=== PATIENT | male | born 1945 | race Caucasian/White ===

== ENCOUNTER → 2019-05-15 10:30 | Outpatient (CLI) | payer MEDICARE, BC | END | disposition home or self-care (01) | LOC: D.HCCECHO 10:30 | PROVIDERS: ATTEND Internal Medicine Cardiovascular Disease | DX: I20.9 Angina pectoris, unspecified (principal) ==

== ENCOUNTER 2019-05-24 06:26 | Outpatient (CLI) | payer MEDICARE, BC ==
[~2019-05-24] VITALS: Ht 200.7 cm; Wt 105.5 kg
--- NOTE | ~2019-05-24 | HEMODYNAMI ---
PATIENT:MAYRA DOMINGUEZ MEDICAL RECORD: [id number] : 45 LOCATION:[facility] ADMISSION DATE: 05/24/19 Generatedon:05/24/20199:20 Patient name: MAYRA DOMINGUEZ Patient #: [id number] SSN: [id number] : 1945 Date of study: 05/24/2019 Page: Of Hemodynamic Procedure Report Patient Data Patient Demographics Procedure consent was obtained First Name: MAYRA Gender: Male Last Name: ALBERTO : 1945 Patient #: [id number] Age: 74 year(s) Race: Unknown SSN: [id number] Additional ID: [id number] Contact details [address]: [address] [place] [address] DRIVE State: [place] City: [place] Zip code: [address] Admission Admission Data Admission Date: 05/24/2019 Admission Time: 6:26 Arrival Date: 05/24/2019 Arrival Time: 8:30 Admit Source: Other Insurance Payor: Medicare [facility] #: [id number] Height (in.): 31.1 BSA: 1.25 (m2) Height (cm.): 79 BMI: 174.43 (kg/m2) Weight (lbs.): 240 Weight (kg.): 108.86 Procedure Procedure Types Cath Procedure Diagnostic Procedure LHC LH w/Coronaries Sedation Charges Moderate Sedation up to 30 minutes PCI Procedure Coronary Stent Coronary Stent Initial Hemochron ACT Test Procedure Description Procedure Date Procedure Date: 05/24/2019 Procedure Start Time: 8:50 Procedure End Time: 9:16 Procedure Staff Name Function Andry Ruelas MD Performing Physician Kelsi Herbert RT Monitor Kat Chan RT Scrub Angi Francis RN Nurse Procedure Data Cath Procedure Fluoroscopy Diagnostic fluoroscopy Total fluoroscopy Time: 6.6 time: 6.6 min min Diagnostic fluoroscopy Total fluoroscopy dose: dose: 1238 mGy 1238 mGy Contrast Material Contrast Material Type Amount (ml) Isovue 300 134 Entry Location Entry Primary Successful Side Size Upsize Upsize Entry Closure Succes sful Closure Location (Fr) 1 (Fr) 2 (Fr) Remarks Device Remarks Femoral Right 5 Fr 6 Fr Exoseal artery Short Estimated blood loss: 5 ml Diagnostic catheters Device Type Used For End Catheter Placement MULTIPACK JL 4.0 5Fr Left Coronary catheter Angiography MULTIPACK 3DRC 5Fr Right Coronary catheter Angiography MULTIPACK Pigtail 5 Fr LV Angiography catheter Procedure Complications No complications Procedure Medications Medication Administration Route Dosage Oxygen etCO2 Nasal cannula 2 l/min Lidocaine 2% added to field 20 Heparin Flush Bag added to field 2 bags (1000units/500ml NS) 0.9% NaCl I.V. 100 ml/hr Versed I.V. 1 mg Fentanyl I.V. 50 mcg Versed I.V. 1 mg Fentanyl I.V. 50 mcg Heparin Bolus I.V. 70879 units Nitroglycerin IC/IA I.C. 100 mcg Versed I.V. 0.5 mg Fentanyl I.V. 25 mcg Plavix P.O. 600 mg Hemodynamics Rest BSA: 1.25 (m2) O2 Consumption: Estimated: 141.66 (ml/min) O2 Consumption indexed : Estimated:113.33 (ml/min/m) Heart Rate: 65 (bpm) Pressure Samples Time Site Value (mmHg) Purpose Heart Use Rate(bpm) 8:58 LV 133/1,11 Snapshot 80 Gradients Valve Time Site Site Mean SEP/DFP Peak To Heart Use 1 2 (mmHg) (sec/min) Peak Rate (mmHg) (bpm) Aortic 9:00 LV AO 80 Snapshots Pre Cath Intra NCS Post Cath Vital Signs Time Heart Resp SPO2 etCO2 NIBP (mmHg) Rhythm Pain Sedation Rate (ipm) (%) (mmHg) Status Level (bpm) 8:43:49 74 13 98 33.1 147/84(110) NSR 0 (11) 10(A) , No pain 8:48:17 57 15 97 27.1 117/50(81) NSR 0 (11) 10(A) , No pain 8:52:23 54 14 99 13.5 131/69(109) NSR 0 (11) 9(A) , No pain 8:56:31 74 17 95 24.8 132/78(112) NSR 0 (11) 9(A) , No pain 9:00:38 84 18 98 0 129/79(110) NSR 0 (11) 9(A) , No pain 9:04:51 78 15 99 27.9 135/68(101) NSR 0 (11) 9(A) , No pain 9:09:04 81 14 99 0 116/69(92) NSR 0 (11) 9(A) , No pain 9:13:08 78 12 99 9.8 131/73(93) NSR 0 (11) 10(A) , No pain Medications Time Medication Route Dose Verified Delivered Reason Notes Effectiveness by by 8:44:42 Oxygen etCO2 2 Andry Andry used for Nasal l/min Boni Ruelas MD procedure cannula 8:44:51 Lidocaine 2% added 20ml Andry Andry for local to vial Boni Ruelas MD anesthetic field 8:44:56 Heparin Flush added 2 bags Andry Andry used for Bag to Boni Ruelas MD procedure (1000units/500ml field NS) 8:45:04 0.9% NaCl I.V. 100 Andry Buffie Per physician ml/hr Boni Francis RN 8:46:08 Versed I.V. 1 mg Andry Buffie for sedation Boni Francis RN 8:46:13 Fentanyl I.V. 50 mcg Andry Buffie for sedation Boni Francis RN 8:51:33 Versed I.V. 1 mg Andry Buffie for sedation Boni Francis RN 8:51:36 Fentanyl I.V. 50 mcg Andry Buffie for sedation Boni Francis RN 9:00:26 Versed I.V. 0.5 mg Andry Andry for sedation Boni Ruelas MD 9:00:30 Fentanyl I.V. 25 mcg Andry Andry for sedation Boni Ruelas MD 9:06:18 Heparin Bolus I.V. 10,000 Andry Buffie for verif ied units Boni Francis RN anticoagulation with dr ruelas 9:06:37 Nitroglycerin I.C. 100 Andry Andry for IC/IA mcg Boni Ruelas MD vasodilation 9:17:51 Plavix P.O. 600 mg Andry Buffie for Boni Francis RN antiplatelet therapy Procedure Log Time Note 7:40:49 Diagnostic Cath Status : Elective 7:42:47 Admit Source: Other 7:42:49 Arrival Date: 05/24/2019 8:30:00 AM 7:43:14 Insurance Payor : Medicare 7:44:17 Patient Height : 31.1 inches 7:44:25 Patient Weight : 240 lbs 8:24:50 Procedure Status Elective Heart Cath (OP). 8:24:53 Kelsi Herbert RT(R) sent for patient. Start room use. 8:24:54 Time tracking: Regular hours (M-F 7:00 - 5:00) 8:24:58 Plan of Care:Hemodynamics will remain stable., Cardiac rhythm will remain stable., Comfort level will be maintained., Respiratory function will remain adequate., Patient/ family verbilizes understanding of procedure., Procedure tolerated without complication., Recovers from procedure without complications.. 8:27:42 Risk of Mortality: 4.6 8:27:45 Risk of blood transfusion: 6.6 8:27:49 Risk of TERESO: 23.1 8:28:00 3a) 45-59 Moderately reduced kidney function. 8:29:15 Maximum allowable contrast dose (3.7 X eGFR X 0.75)158 ml. 8:33:30 Patient received from Pre/Post Procedure Room to [facility] 2 Alert and oriented. Tansferred to table in Supine position. 8:33:31 Warm blankets applied, and leon hugger turned on for patient comfort. 8:33:32 Correct patient and procedure confirmed by team. 8:33:33 Signed procedure consent form obtained from patient. 8:33:35 ECG and BP/O2 sat monitors applied to patient. 8:42:47 Baseline sample Acquired. 8:42:47 Vital chart was started 8:43:15 Rhythm: sinus rhythm 8:43:17 Full Disclosure recording started 8:43:21 H&P Date Dictated: 05/24/2019 Within 30 days and on chart., H&P Addendum completed by physician on day of procedure. (MUST COMPLETE FOR ALL OUTPATIENTS). 8:43:23 Pre-procedure instructions explained to patient. 8:43:23 Pre-op teaching completed and patient verbalized understanding. 8:43:24 Family in waiting room. 8:43:26 Patient NPO since Midnight. 8:43:29 Is the patient allergic to Iodine/contrast media? No. 8:43:30 Was the patient premedicated? Yes 8:43:32 Is patient on blood thinner?Yes 8:44:22 patient states last dose of coumadin on 05/19/19 8:44:25 Patient diabetic? No. 8:44:30 Previous problem with sedation/anesthesia? No ? 8:44:32 Snore? Yes 8:44:38 Sleep apnea? Yes 8:44:40 Deviated septum? No 8:44:41 Opens mouth fully? Yes 8:44:42 Oxygen 2 l/min etCO2 Nasal cannula was administered by Andry Ruelas MD; used for procedure; Verbal order read back and verified. 8:44:42 Sticks out tongue? Yes 8:44:43 Airway obstruction? No ? 8:44:46 Dentures? No ? 8:44:49 Pre procedure: right dorsailis pedis pulse 2+ Normal; easily identifiable; not easily obliterated 8:44:51 Lidocaine 2% 20ml vial added to field was administered by Andry Ruelas MD; for local anesthetic; Verbal order read back and verified. 8:44:52 Pre procedure: left dorsailis pedis pulse 2+ Normal; easily identifiable; not easily obliterated 8:44:56 Heparin Flush Bag (1000units/500ml NS) 2 bags added to field was administered by Andry Ruelas MD; used for procedure; Verbal order read back and verified. 8:44:56 Patient pain scale 0/10 ?. 8:45:04 0.9% NaCl 100 ml/hr I.V. was administered by Angi Francis RN; Per physician; Verbal order read back and verified. 8:45:04 IV patent on arrival in left forearm with 0.9% NaCl at [facility]. 8:45:06 Lab results completed and on chart. 8:45:18 Stress Test: yes; abnormal anterior 8:45:24 Right groin area was prepped with chlora-prep and draped in sterile fashion 8:45:25 Alarms reviewed by R. N. 8:45:25 Sharps counted by scrub and verified by R.N. 8:45:27 Physician arrived 8:45:27 --------ALL STOP TIME OUT------ 8:45:28 Final Timeout: patient, procedure, and site verified with staff and physician. All members of the team are in agreement. 8:45:29 Right groin site verified by team. 8:45:32 Fire Safety Assessment: A--An alcohol-based skin anteseptic being used preoperatively., C--Open oxygen or nitrous oxide is being used., D--An ESU, laser, or fiber-optic light is being used. 8:45:35 Physical assessment completed. ASA score P 2 - A patient with mild systemic disease as per Andry Ruelas MD. 8:45:40 Sedation plan: IV Moderate Sedation Medication:Versed, Fentanyl 8:46:08 Versed 1 mg I.V. was administered by Angi Francis RN; for sedation; Verbal order read back and verified. 8:46:13 Fentanyl 50 mcg I.V. was administered by Angi Francis RN; for sedation; Verbal order read back and verified. 8:46:21 Use device set Femoral Dx 8:46:22 ACIST Syringe (69908) opened to sterile field. 8:46:22 Bag Decanter (2002S) opened to sterile field. 8:46:23 Medline Cath Pack ([id number]) opened to sterile field. 8:46:24 ACIST Hand Control (75496) opened to sterile field. 8:46:24 ACIST Manifold (62682) opened to sterile field. 8:46:24 DIAGNOSTIC Multipack 5Fr catheter set (IW4139) opened to sterile field. 8:46:25 Tegaderm 4 x 4 (1626W) opened to sterile field. 8:46:26 SHEATH 5FR [place] (SQP311) opened to sterile field. 8:46:26 EMERALD Guide Wire (245-532) opened to sterile field. 8:50:31 Procedure started. 8:50:34 Local anesthetic to right femoral artery with Lidocaine 2% by Andry Ruelas MD.INITIAL ACCESS ONLY 8:50:46 Zero performed for pressure channel P1 8:51:33 Versed 1 mg I.V. was administered by Angi Francis RN; for sedation; Verbal order read back and verified. 8:51:36 Fentanyl 50 mcg I.V. was administered by Angi Francis RN; for sedation; Verbal order read back and verified. 8:52:11 A 5 Fr sheath was inserted into the Right Femoral artery 8:52:17 A MULTIPACK JL 4.0 5Fr catheter was advanced over the wire and used for Left Coronary Angiography. 8:53:18 LCA angiography performed. 8:53:21 Injector settings: Ml/sec: 3, Volume: 6, 8:54:35 Catheter removed. 8:54:40 A MULTIPACK 3DRC 5Fr catheter was advanced over the wire and used for Right Coronary Angiography. 8:56:17 RCA angiography performed. 8:56:20 Injector settings: Ml/sec: 3, Volume: 6, 8:56:33 Catheter removed. 8:56:44 A MULTIPACK Pigtail 5 Fr catheter was advanced over the wire and used for LV Angiography. 8:58:46 LV hemodynamics recorded. 8:58:47 LV gram done using JIMENEZ 8:58:50 Injector settings: Ml/sec: 5, Volume: 15, 9:00:04 EF : 40 % 9:00:26 Versed 0.5 mg I.V. was administered by Andry Ruelas MD; for sedation; Verbal order read back and verified. 9:00:30 Fentanyl 25 mcg I.V. was administered by Andry Ruelas MD; for sedation; Verbal order read back and verified. 9:01:01 ACCDominant side:Right 9:01:01 Catheter removed. 9:01:05 Proceeding to intervention. 9:01:26 BMW 300cm [place] 2 J wire ([id number]) opened to sterile field. 9:01:27 INFLATOR Merit BasixCompak (WO8563) opened to sterile field. 9:01:28 SHEATH 6FR [place] (FIY887) opened to sterile field. 9:01:39 GUIDE 6FR XBLAD 3.5 catheter ([id number]) opened to sterile field. 9:03:11 Sheath upsized to a 6 Fr Short. 9:03:20 6 Fr xblad 3.6 guide catheter was inserted over the wire 9:03:58 Pre PCI Site: [place] mLAD has 90% stenosis. 9:04:01 ACC Pre-intervention MARIA ELENA Flow is 3. 9:04:34 TUBING High Pressure Extension Tubing (Boni) ([id number]) opened to sterile field. 9:04:49 Guide Catheter removed. unable to cannulate vessel. 9:04:58 GUIDE 6FR EBU 4.0 guide catheter ([id number]) opened to sterile field. 9:05:06 6 Fr ebu 4 guide catheter was inserted over the wire 9:06:18 Heparin Bolus 10,000 units I.V. was administered by Angi Francis RN; for anticoagulation; verified with dr ruelas Verbal order read back and verified. 9:06:37 Nitroglycerin IC/IA 100 mcg I.C. was administered by Andry Ruelas MD; for vasodilation; Verbal order read back and verified. 9:08:32 bmw wire advanced. 9::29 Wire advanced across lesion. 9:11:40 Place stent Inflation Number: 1 A COBRA RX 3.0 X 18 Stent was prepped and advanced across the Mid LAD 90. The stent was deployed at 14 ADINA for 0:10 (min:sec) 0. 9:13:06 Stent catheter was removed intact over wire. 9:13:07 Wire removed. 9:13:08 Guide catheter removed. 9:13:22 EXOSEAL 6Fr (EX600) opened to sterile field. 9:13:32 Post PCI Site: [place] mLAD has 0% stenosis. 9:13:32 ACC Post-intervention MARIA ELENA Flow is 3. 9:13:33 Sheath removed intact; hemostasis achieved with Exoseal to the Right Femoral artery. 9:13:37 Procedure ended.(Physican Out) 9:14:28 Fluoroscopy time 06.60 minutes. 9:14:32 Fluoroscopy dose: 1238 mGy 9:14:32 Flurop Dose total: 1238 9:14:38 Dose Area Product 66419 mGy/cm. 9:14:41 Contrast amount:Isovue 300 134ml. 9:14:42 Maximum allowable dose exceeded? No. 9:14:43 Sharps counted by scrub and verified by R.N. 9:14:44 Insertion/operative site no bleeding no hematoma. 9:14:47 Post-op/insertion site Right Femoral artery dressed using a 4 x 4 and Tegaderm. 9:14:49 Post right femoral artery:stable 9:15:02 Post Procedure Pulses reassessed and unchanged 9:15:05 Post procedure rhythm: unchanged. 9:15:08 Estimated blood loss: 5 ml 9:15:09 Post procedure instruction explained to patient.Patient verbalizes understanding. 9:15:10 Patient needs reinforcement of post procedure teaching. 9:15:47 Procedure type changed to Cath procedure, Diagnostic procedure, C, [facility] w/Coronaries, Sedation Charges, Moderate Sedation up to 30 minutes, PCI procedure, Coronary Stent, Coronary Stent Initial, Hemochron ACT Test 9:15:48 Procedure and supply charges have been captured, reviewed, submitted and are correct. 9:15:52 Procedure Complication : No complications 9:15:55 Vital chart was stopped 9:15:57 [facility] Findings: MVD- PCI performed (see procedure note) 9:15:59 Operative report dictated upon procedure completion. 9:16:00 See physician's report for complete and final results. 9:16:03 Report given to Pre/Post Procedure Room. 9:16:05 Patient transfered to Pre/Post Procedure Room with Stretcher. 9:16:06 Procedure ended. 9:16:06 Full Disclosure recording stopped 9:16:18 ACC-PCI Only Patient was given prescriptions, or instructed by Andry Ruelas MD to start/continue the following medications upon discharge: Plavix 9:16:19 End room use (Document Last) 9:17:51 Plavix 600 mg P.O. was administered by Angi Francis RN; for antiplatelet therapy; Verbal order read back and verified. 9:20:12 ACT drawn and resulted at out of range high seconds. (normal therapeutic range 180-240 seconds). Intervention Summary Intervention Notes Time ActionType Lesion and Equipment Action# Pressure Duration Attributes Used 9:11:40 Place stent Mid LAD COBRA RX 1 14 00:10 3.0 X 18 Stent Device Usage Item Name Manufacture Quantity Catalog Hospital Part Current Minimal Lot# / Number Charge Number Stock Stock Serial# Code ACIST Syringe Acist 1 08653 719330 139672 285412 20 (80938) Medical Systems Inc Bag Decanter Microtek 1 824515 70224 454045 5 () Medical Inc. Medline Cath Medline 1 [id number] 061594 85771 459616 5 Pack ([id number]) ACIST Hand Acist 1 02669 687722 103611 858012 5 Control Medical (20571) Systems Inc ACIST Manifold Acist 1 71544 192238 522596 923682 5 (79871) Medical Systems Inc DIAGNOSTIC Cardinal 1 [id number] 890915 78626 415480 30 Multipack 5Fr Health catheter set (US0270) Tegaderm 4 x 4 3M 1 1626W 918723 859060 697192 5 (1626W) SHEATH 5FR Terumo 1 JHU924 271465 748017 563628 5 [place] (JLN888) EMERALD Guide Cardinal 1 502-455 199990 922302 182843 5 Wire (502-455) Health MULTIPACK JL Cardinal 1 037851 5 4.0 5Fr Health catheter MULTIPACK 3DRC Cardinal 1 801093 5 5Fr catheter Health MULTIPACK Cardinal 1 509517 5 Pigtail 5 Fr Health catheter BMW 300cm [place] 1 [id number] 005634 355645 739195 5 [place] 2 J Vascular wire (7006316Y) INFLATOR Merit Merit 1 XK1258 903530 365036 728776 15 BasixCompak Medical (DZ3923) SHEATH 6FR Terumo 1 KFB462 286303 114501 922855 40 [place] (YCV489) GUIDE 6FR Cardinal 1 37003224 536838 157816 395867 10 XBLAD 3.5 Health catheter (24150928) TUBING High Merit 1 [id number] 329868 34150 064006 10 Pressure Medical Extension Tubing (Boni) ([id number]) GUIDE 6FR EBU Medtronic 1 [id number] 322386 16150 801088 1 4.0 guide catheter ([id number]) COBRA RX 3.0 X Celonova 1 097-41-42413 455615 [id number] [id number] 4 [id number] 18 stent Biosciences () EXOSEAL 6Fr Cardinal 1 EX600 834603 967387 996092 10 (EX600) Health Signature Audit [place] Stage Time Signature Unsigned Intra-Procedure 05/24/2019 Kelsi Herbert 9:19:16 AM RT(R) Intra-Procedure 05/24/2019 Angi Francis RN 9:19:47 AM Intra-Procedure 05/24/2019 Andry Ruelas MD 9:20:38 AM Signatures Performing Physician : Signature : Andry Ruelas MD Date : Time : Monitor : Kelsi Keon RT Signature : Date : Time : Nurse : Buffie Francis RN Signature : Date : Time : [address] [place] [address]
[2019-05-24] MEDS ORDERED: OMEPRAZOLE20 M1 PO (07:06)
[2019-05-24] MEDS ORDERED: SYNTHROID112 MCG PO (07:06)
[2019-05-24] MEDS ORDERED: TYLENOL ARTHRI650 MG (07:07)
[2019-05-24] MEDS ORDERED: ZYLOPRIM300 MG PO (07:07)
[2019-05-24] MEDS ORDERED: ZOVIRAX200 MG PO (07:09)
[2019-05-24] MEDS ORDERED: LOSARTAN-HCTZ1 EAC1 PO (07:10)
[2019-05-24] MEDS ORDERED: COUMADIN2 MG PO (07:11)
[2019-05-24] MEDS ORDERED: COUMADIN3 MG (07:11)
[2019-05-24] MEDS ORDERED: AMOXICILLIN500 M1 PO (07:12)
[2019-05-24 07:16] VITALS: BP 136/71; Ht 200.7 cm; Wt 105.5 kg
[2019-05-24 07:53] LABS: BASOPHILS 0.4 % (0-2); EOSINOPHILS 4.1 % (0-7); HEMATOCRIT 38.7 % (42.0-54.0); HEMOGLOBIN 12.5 g/dL (13.5-17.5); LYMPHOCYTES 39.6 % (15-50); MCH 28.4 pg (26.0-34.0); MCHC 32.3 g/dL (31.0-37.0); MEAN PLATELET VOLUME 11.9 fL (7.4-10.4); MONOCYTES 6.8 % (2-11); NEUTROPHILS 49.1 % (40-80); PLATELET COUNT 223 10x3/uL (130-400); RDW 13.9 % (11.5-14.5); WBC 7.4 10x3/uL (4.8-10.8)
[2019-05-24 07:56] LABS: ANION GAP 12.6 mmol/L (8-16); CALCIUM 9.4 mg/dL (8.5-10.1); CARBON DIOXIDE 28.4 mmol/L (21.0-32.0); CHOL - HDL RATIO 4.5 ratio (2.3-4.9); CREATININE - SERUM 1.3 mg/dL (0.6-1.3); LDL-HDL RATIO 3.2 ratio (1.5-3.5)
[2019-05-24 08:21] LABS: INR 1.31 (0.85-1.17); PROTIME 16.2 SECONDS (11.6-15.0)
[2019-05-24] MEDS ORDERED: PLAVIX75 MG PO (09:30)
--- NOTE | 2019-05-24 09:35 | NUR ---
REC TO ROOM FROM [facility] VIA STRETCHER. MONITORING INITIATED. R GROIN DRESSING TEGADERM AND 4X4 CDI, GROIN SOFT, NO S/S BLEEDING OR HEMATOMA. INSTRUCTED TO KEEP HEAD ON PILLOW AND RLE STILL AND STRAIGHT. PPP. BP 134/76, NSR 65, SAT 100% 2LNC.
--- NOTE | 2019-05-24 10:01 | NUR ---
R GROIN REMAINS SOFT, DRESSING CDI. PPP. NO S/S BLEEDING OR HEMATOMA. BP 137/73, NSR 67, RR 12, SAT 97% ON 2LNC. GARRETT SIPS OF COLA.
--- NOTE | 2019-05-24 10:30 | NUR ---
R GROIN SOFT, DRESSING CDI, NO S/S BLEEDING OR HEMATOMA. PPP. BP 130/70, NSR 64, SAT 99% ON 2LNC. GARRETT SIPS OF COKE.
--- NOTE | 2019-05-24 11:00 | NUR ---
R GROIN SOFT, DRESSING CDI. NO S/S BLEEDING OR HEMATOMA. PPP. BP 121/60, NSR 60, SAT 100% 2LNC. SIPS OF COKE WITH ASSIST.
--- NOTE | 2019-05-24 11:30 | NUR ---
R GROIN CDI, NO S/S BLEEDING OR HEMATOMA. PPP. BP 125/69, SB 56.
--- NOTE | 2019-05-24 12:05 | NUR ---
R GROIN REMAINS SOFT, NO S/S BLEEDING OR HEMATOMA. BP 125/70, SB 55, SAT 99% ON 2LNC.
--- NOTE | 2019-05-24 12:15 | NUR ---
REPOSTITIONED UP IN BED WITH ASSIST OF ANOTHER NURSE, HOB RAISED FOR PT COMFORT. GROIN REMAINS SOFT, NO S/S BLEEDING OR HEMATOMA. TURKEY SANDWICH AND COKE PER PT REQUEST. FAMILY AT BEDSIDE.
--- NOTE | 2019-05-24 12:45 | NUR ---
R GROIN REMAINS SOFT AND NO S/S BLEEDING OR HEMATOMA, PPP. TOLERATED DIET. SON/DTR AT BEDSIDE. IV DC TIP INTACT, MONITORING DC, PT DRESSING.
--- NOTE | 2019-05-24 13:10 | NUR ---
DISCHARGE INSTRUCTIONS REVIEWED W PT AND FAMILY, INCLUDING ADDITION OF PLAVIX TO MED REGIMEN STARTING TOMORROW, AND RESUMING COUMADIN TOMORROW. THIS INFO IS ON HIS MED REC AND HE VERBALIZES UNDERSTANDING.
--- NOTE | 2019-05-24 13:20 | NUR ---
AMBULATED INTO RESTROOM. VOIDED BLADDER, NO REPORT OF DIFFICULTY. DC HOME W FAMILY VIA WHEELCHAIR TO PRIVATE VEHICLE. PT HAS ALL BELONGINGS.
== END 2019-05-24 13:20 | disposition home or self-care (01) ==
LOC: D.CATH 06:26
PROVIDERS: ATTEND Internal Medicine Cardiovascular Disease
DX: I20.9 Angina pectoris, unspecified (principal); R94.30 Abnormal result of cardiovascular function study, unspecified; I48.91 Unspecified atrial fibrillation; I34.0 Nonrheumatic mitral (valve) insufficiency; D68.62 Lupus anticoagulant syndrome; I10 Essential (primary) hypertension